=== PATIENT | male | born 1945 | race Caucasian/White ===

== ENCOUNTER 2023-08-04 16:08 | Outpatient (RCR) | payer MEDICARE, OTHER, SELFPAY | END 2023-08-04 23:59 | disposition home or self-care (01) | LOC: CRHB 16:08 | PROVIDERS: ATTENDING PHYSICIAN Internal Medicine Cardiovascular Disease | DX: I25.10 Atherosclerotic heart disease of native coronary artery without angina pectoris (principal); Z95.1 Presence of aortocoronary bypass graft; I25.2 Old myocardial infarction | CPT/HCPCS: G0422; G0423 ==

== ENCOUNTER 2023-09-01 16:02 | Outpatient (RCR) | payer MEDICARE, OTHER, SELFPAY | END 2023-09-01 23:59 | disposition home or self-care (01) | LOC: CRHB 16:02 | PROVIDERS: ATTENDING PHYSICIAN Internal Medicine Cardiovascular Disease | DX: I25.10 Atherosclerotic heart disease of native coronary artery without angina pectoris (principal); Z95.1 Presence of aortocoronary bypass graft; I25.2 Old myocardial infarction | CPT/HCPCS: G0422; G0423 ==

== ENCOUNTER 2023-09-24 16:04 | Outpatient (RCR) | payer MEDICARE, OTHER, SELFPAY | END 2023-09-24 23:59 | disposition home or self-care (01) | LOC: CRHB 16:04 | PROVIDERS: ATTENDING PHYSICIAN Internal Medicine Cardiovascular Disease | DX: I25.2 Old myocardial infarction (principal); Z95.1 Presence of aortocoronary bypass graft | CPT/HCPCS: G0422; G0423 ==

== ENCOUNTER → 2023-09-29 11:23 | Outpatient (REF) | payer MEDICARE, OTHER, SELFPAY | LOC: RAD 11:23 | PROVIDERS: ATTENDING PHYSICIAN Family Medicine | DX: R07.89 Other chest pain (principal) | CPT/HCPCS: 71046; 93005 ==

== ENCOUNTER → 2023-10-14 06:54 | Outpatient (REF) | payer MEDICARE, OTHER, SELFPAY ==
[2023-10-14 07:56] LABS: ALT (SGPT) 15 U/L (0-50); AST (SGOT) 24 U/L (17-59); Alkaline Phosphatase 74 U/L (38-126); Direct Bilirubin 0.2 mg/dl (0.0-0.4); HDL Cholesterol 47 mg/dl; LDL Cholesterol, Calculated 42 mg/dl; Total Bilirubin 0.5 mg/dl (0.2-1.3); Total Cholesterol 107 mg/dl (50-199); Total Protein 6.7 g/dl (6.3-8.2); Triglyceride 90 mg/dl (10-149); Very Low Density Lipoprotein 18 mg/dl (0-30)
== END ==
LOC: REG 06:54
PROVIDERS: ATTENDING PHYSICIAN Internal Medicine Cardiovascular Disease; FAMILY PHYSICIAN Family Medicine
DX: Z95.1 Presence of aortocoronary bypass graft (principal); I10 Essential (primary) hypertension
CPT/HCPCS: 36415; 80061; 80076

== ENCOUNTER → 2024-02-03 15:54 | Outpatient (REF) | payer MEDICARE, OTHER, SELFPAY | LOC: RCS 15:54 | PROVIDERS: ATTENDING PHYSICIAN Internal Medicine Cardiovascular Disease | DX: I49.3 Ventricular premature depolarization (principal) | CPT/HCPCS: 93306 ==

== ENCOUNTER 2024-04-07 04:21 | Observation (INO) | payer MEDICARE, OTHER, SELFPAY ==
[2024-04-07] VITALS (12 sets, daily range): BP systolic 112–202; BP diastolic 50–84; BMI 22.6
[2024-04-07] MEDS: LOW STRENGTH ASPIRIN 324 MG PO (02:13)
[2024-04-07 02:17] LABS: % Basophils 0.9 % (0-2); % Eosinophils 8.9 % (0-6); % Immature Granulocytes 0.4 % (0-0.5); % Lymphocytes 18.3 % (20.5-51.1); % Monocytes 9.4 % (1.7-9.3); % Neutrophils 62.1 % (42.2-75.2); Absolute Basophils 0.1 10^3/uL (0-0.2); Absolute Eosinophils 0.5 10^3/uL (0-0.7); Absolute Monocytes 0.5 10^3/uL (0.1-0.6); Absolute Neutrophils 3.5 10^3/uL (1.4-6.5); Hematocrit 34.4 % (39.0-52.0); Hemoglobin 12.1 g/dL (13.0-18.0); Mean Corp Hgb Conc. 35.2 g/dL (33.0-37.0); Mean Corpuscular Hgb 30.4 pg (27.0-31.0); Mean Corpuscular Volume 86.4 fL (80.0-94.0); Mean Platelet Volume 9.9 fL (7.4-10.4); Nucleated Red Blood Cells % 0 % (-); Platelet Count 173 10^3/uL (130-400); Red Blood Cell Count 3.98 10^6/uL (4.70-6.10); Red Cell Dist. Width 12.6 % (11.5-14.5); White Blood Cell Count 5.6 10^3/uL (4.8-10.8)
[2024-04-07] MEDS: NITROSTAT (SUBLINGUAL) 0.4 MG SL ×2 (02:17→03:03)
[2024-04-07 02:29] LABS: APTT 40.2 Sec (23.4-35.0); INR 1.06; PT 13.8 Sec (11.4-14.6)
[2024-04-07 02:39] LABS: ALT (SGPT) 17 U/L (0-50); AST (SGOT) 25 U/L (17-59); Albumin 4.1 g/dl (3.5-5.0); Alkaline Phosphatase 108 U/L (38-126); Blood Urea Nitrogen 14 mg/dl (9-20); Calcium 9.2 mg/dl (8.4-10.2); Carbon Dioxide 21 mmol/L (22-30); Chloride 105 mmol/L (98-107); Glucose 105 mg/dl (70-99); Potassium 4.5 mmol/L (3.5-5.1); Sodium 138 mmol/L (135-145); Total Bilirubin 0.4 mg/dl (0.2-1.3); Total Protein 6.5 g/dl (6.3-8.2); eGFR > 60.00
[2024-04-07 02:50] LABS: NT-proBNP 585 pg/ml; Troponin I < 0.012 ng/ml
--- NOTE | 2024-04-07 03:07 | ED.GENMED ---
History of Present Illness
General
Chief Complaint: Chest Pain
Time Seen by Provider: 04/07/24 01:50
History of Present Illness
History of Present Illness:
79-year-old male with history of CABG 10 months ago, history of RI with stenting, hypertension presenting to the emergency department for chest pain. Patient reports earlier in this evening, he was having some chest wall pain. He thought that it
may be musculoskeletal. When he went to bed, started to have some soreness in his jaw, and then pain radiate to his shoulders. Notes that he had the same pain 10 months ago when he had his CABG. Patient is on aspirin and Plavix. Denies any
difficulty breathing. Denies fever or cough. Denies any injuries to the chest. Patient follows with Dr. Oakes. Denies additional acute medical
Past History
Past History
ED Past Medical History: Asthma, HTN, Hypercholesterolemia, Psychiatric (Anxiety) and Other (CP, Vertigo, Spinal stenosis); Negative NIDDM
ED Past Surgical History: Cardiac (Stent RCA, CABG), Orthopedic (Carpal tunnel, Left thumb ligament repair, Jaw surgery, Knee surgery) and Other (Sinus surgery, Hernia repair X 3)
Social History
Tobacco: Former smoker
Alcohol: Occasional
Personal:
Living: with family
Phy Exam
Physical Exam
Physical Exam:
General: Well-appearing, no clinical signs of dehydration, nontoxic and in no acute distress
HEENT: protecting airway
Neck: appears supple
CV: Normal heart rate, regular rhythm, no reproducible tenderness to the chest wall
Resp: No accessory muscle use, no increased work of breathing, lungs clear to auscultation bilaterally
Abd: Soft and non-distended, no tenderness to palpation
Extremities: No deformities, no swelling, no erythema
Neuro: alert, no focal neurologic deficit
: deferred
Rectal: deferred
Psych: Normal affect
Skin: Intact
Scores
Heart Score for Chest Pain Patients
STEMI patient?: No
History: Moderately Suspicious
ECG: Nonspecific Repolarization
Age: >/= 65 years
Risk Factors: >/= 3 Risk Factors or History of CAD
Troponin: </= Normal Limit
Heart Score for Chest Pain Patients: 6
Heart Score Risk: 20.3% MACE over next 6 weeks
Course
Orders/Labs/Results
Orders:
Orders
04/07/24 01:39
ECG [Electrocardiogram (*1)] Urgent
Reason for Study: Chest Pain
EKG- Treatment ONCE
04/07/24 01:50
CR Chest - 2 Views Urgent
Comment:
Reason For Exam: chest pain
04/07/24 01:58
Aspirin Chewable [Low Strength Aspirin] 324 mg PO NOW STA
Nitroglycerin Sublingual [Nitrostat (Sublingual)] 0.4 mg SL [id number] PRN
04/07/24 02:07
Complete Blood Count/With Diff Urgent
Comprehensive Metabolic Panel Urgent
NT-proBNP Urgent
PTT Urgent
Prothrombin Time Urgent
Troponin I Q3H
04/07/24 05:00
Troponin I Q3H
Abnormal Lab Results
04/07/24
02:07
RBC 3.98 L 10^6/uL
(4.70-6.10)
Hgb 12.1 L g/dL
(13.0-18.0)
Hct 34.4 L %
(39.0-52.0)
Absolute Lymphs (auto) 1.0 L 10^3/uL
(1.2-3.4)
Lymphocytes % 18.3 L %
(20.5-51.1)
Monocytes % 9.4 H %
(1.7-9.3)
Eosinophils % 8.9 H %
(0-6)
APTT 40.2 H Sec
(23.4-35.0)
Carbon Dioxide 21 L mmol/L
(22-30)
Creatinine 0.6 L mg/dL
(0.7-1.3)
Glucose 105 H mg/dl
(70-99)
04/07/24 02:07
04/07/24 02:07
Vital Signs
Initial and Last Documented VS:
Initial Vital Signs
Temp Pulse Resp BP Pulse Ox
98.2 F 57 16 202/84 100
04/07/24 01:39 04/07/24 01:39 04/07/24 01:39 04/07/24 01:39 04/07/24 01:39
Last Documented Vital Signs
Temp Pulse Resp BP Pulse Ox
98.2 F 66 15 151/63 98
04/07/24 01:39 04/07/24 02:30 04/07/24 02:30 04/07/24 03:03 04/07/24 02:30
MDM/Problems Addressed
MDM/Problems Addressed:
79-year-old male with history of CAD status post CABG, hypertension, hyperlipidemia presenting to the emergency department for chest pain. Vital signs on arrival are significant for hypertension, improved since arrival.
On exam, patient is well-appearing, no acute distress. Benign cardiac and pulmonary exam. EKG obtained on patient's arrival, with a lateral ST depressions, however appears relatively unchanged from prior. Patient story is concerning for ACS. In
addition, notes that he had the same symptoms 10 months ago when he was found to have multivessel occlusions. This reason we will obtain laboratory analysis including troponin. Will start patient on nitro and aspirin and reassess for improvement.
03:15 - Labs are unremarkable with negative troponin. Chest x-ray without acute cardiopulmonary disease. Blood pressure is improved. Patient reports no improvement in his symptoms with nitro. Given that he is still symptomatic with heart score
of 6, feel patient warrants admission for continued cardiac monitoring and cardiac consultation. Patient agreeable to plan.
*EKG
Interpreted by ED Provider?: Yes
EKG Intrepretation Date: 04/07/24
EKG Intrepretation Time: 03:10
Interpretation: normal
Comparison EKG: no changes (07/19/23)
Heart Rate: 51
Rate: bradycardiac
Rhythm: sinus
[place]: normal axis
Interval: normal interval
QRS Pattern: normal QRS
Ischemia: ST depression (laterally)
*Critical Care Note
Total Time (30-74mins, 75-104mins- exclusive of procedures): Not Applicable
ED Attending Note
-
Portions of this chart may have been created with voice recognition software.� Occasional wrong word or��sound alike� substitutions may have occurred due to the inherent limitations of voice recognition software.
Discharge Plan
Departure
Prescriptions:
No Action
atorvastatin 40 mg Tablet
40 mg PO QPM
therapeutic multivitamin Tablet
1 tab PO DAILY
aspirin 81 mg Tablet,Delayed Release (Dr/Ec)
81 mg PO DAILY
alprazolam 0.5 mg Tablet
0.5 mg PO Q6HPRN PRN (Reason: ANXIETY)
Patient Comments:
05/25/23 FILLED ON 05/06/23 #30
amiodarone [Pacerone] 200 mg Tablet
200 mg PO DAILY Qty: 60 0RF
clopidogrel 75 mg Tablet
75 mg PO DAILY Qty: 30 0RF
acetaminophen 325 mg Tablet
650 mg PO Q6HPRN PRN (Reason: mild pain,headache) Qty: 0 0RF
metoprolol succinate 25 mg Tablet Extended Release 24 Hr
25 mg PO DAILY Qty: 90 1RF
furosemide 20 mg tablet
20 mg PO DAILY Qty: 3 0RF
pantoprazole 40 mg Tablet,Delayed Release (Dr/Ec)
40 mg PO DAILY Qty: 30 0RF
Interventions
Interventions:
*Risk Screen - Suicide Last Done: 04/07/24 01:39
*General Assessment Last Done: 04/07/24 02:00
*Neglect/Abuse Screening Last Done: 04/07/24 01:39
ED- Fall Risk Assessment Last Done: 04/07/24 02:00
*ED COVID-19 Vaccine History Last Done: 04/07/24 02:00
ED- Cardiac Assessment Last Done: 04/07/24 02:00
Discharge Date and Time
Print Language: [id number]
--- NOTE | 2024-04-07 04:16 | HPS.HSE ---
Family Physician
-
Family Physician: Galo Cadena
Chief Complaint
-
Chest pain
History of Present Illness
Patient is a 79y M with PMH significant for ASCVD who presents to ED complaining of chest pain. Patient states that he was feeling very well until this evening around 8PM when he developed substernal chest pain. Patient initially thought the
discomfort was musculoskeletal in origin. He notes that he has been doing exercises to strengthen his core - and did more than usual over the past 2 days. He was able to get to sleep this evening, but woke with neck pain / upper back pain, headache
and pain radiating into the jaw. He presented to the ED for further evaluation and treatment.
Patient denies any dyspnea, diaphoresis, nausea, etc.
He states that his current symptoms seem more 'midline' than his prior chest pain episodes (has had CABG and stent in the past).
In the ED, patient states that his pain is improving - currently a /.
Medical History
Past Medical History
Past Medical History: Reports Other
Additional Past Medical History:
ASCVD (CAD and Carotid Stenosis)
Hypertension
Generalized Anxiety
Chronic Sinus Disease
Past Surgical History: Reports Other
Additional Past Surgical History:
CABG (05/2023)
PTCA with Stent
Left CEA
Jaw Surgery
Hernia Repair
Carpal Tunnel
Sinus Surgery
Social History
Tobacco: Former Smoker (Quit smoking in 1980s. Approx 20 pack years total use.)
Alcohol: Occasional
Drug: None
Personal:
Living: With Family
Family History
Family History: Other (Mother / Sister: Heart Disease)
Allergies / Home Medications
Allergies reflects when Allergies were last updated in [facility].
Home Medications with original date entered in [facility]
Allergy/Medication List:
Allergies
Allergy/AdvReac Type Severity Reaction Status Date / Time
levofloxacin [From Levaquin] Allergy Swelling Verified 04/07/24 01:39
naproxen Allergy anaphylaxis Verified 04/07/24 01:39
Home Medications
alprazolam 0.5 mg tablet 0.5 mg PO Q6HPRN PRN ANXIETY 05/25/23
atorvastatin 40 mg tablet 80 mg PO QPM High Cholesterol 05/25/23
acetaminophen 325 mg tablet 650 mg (2 x 325 mg) PO Q6HPRN PRN mild pain,headache #0 tabs 06/01/23
clopidogrel 75 mg tablet 75 mg PO DAILY Blood clot prevention/tx #30 tabs 06/01/23
gabapentin 300 mg tablet 300 mg PO BID 04/07/24
losartan 25 mg tablet 25 mg PO DAILY 04/07/24
metoprolol succinate 25 mg tablet,extended release 24 hr 12.5 mg PO HS 04/07/24
Review of Systems
-
History Source: Patient
A 12 point ROS was completed and negative except as noted: Yes
Constitutional: Denies Fever or Chills
EENT: Denies Sore Throat
Respiratory: Denies Cough or Trouble Breathing
Cardiac: Reports Chest Pain; Denies Diaphoresis, Palpitations or Syncope
Abdomen/GI: Denies Abdominal Pain, Nausea, Vomiting or Diarrhea
: Denies Dysuria, Frequency or Flank Pain
Musculoskeletal: Denies Joint Pain or Edema
Neurological: Reports Headache; Denies Dizzy
Psych: Reports Anxiety; Denies Depression
Physical Exam
Vital Signs
Vital Signs
Temp Pulse Resp BP Pulse Ox
98.2 F 51 13 126/57 96
04/07/24 01:39 04/07/24 04:00 04/07/24 04:00 04/07/24 04:00 04/07/24 04:00
Physical Exam
General: Other (79y M in no acute distress.)
HEENT: Moist mucous membranes and PERRLA
Respiratory: Clear; No Wheezes, Rales or Rhonchi
Cardiac: S1/S2 and Regular Rhythm; No Murmur
GI: Soft, Non Tender, Non Distended and Normal Bowel Sounds
Musculoskeletal: No Clubbing, No Cyanosis, No Edema and Other (Tenderness L sternum area. No overlying skin changes / fluctuance / etc.)
Neuro: AO x 3
Laboratory Results
-
04/07/24 02:07
04/07/24 02:07
Laboratory Results
PT 13.8 Sec (11.4-14.6) 04/07/24 02:07
INR 1.06 04/07/24 02:07
APTT 40.2 Sec (23.4-35.0) H 04/07/24 02:07
Total Bilirubin 0.4 mg/dl (0.2-1.3) 04/07/24 02:07
AST 25 U/L (17-59) 04/07/24 02:07
ALT 17 U/L (0-50) 04/07/24 02:07
Alkaline Phosphatase 108 U/L (38-126) 04/07/24 02:07
Troponin I < 0.012 ng/ml 04/07/24 02:07
Impression/Plan
-
A/P: Patient is a 79y M with PMH significant for ASCVD who presents to ED complaining of chest pain this evening.
Chest Pain
ASCVD
- Observe overnight for further evaluation and treatment.
- Pain improving since arrival - continue to monitor for any changes.
- EKG with non-specific ST-T wave changes in the lateral leads - has had similar changes on prior tracings.
- Initial troponin is undetectable.
- Continue outpatient Plavix, statin, beta-jessika, etc.
- Add back ASA 81mg daily for now.
- Serial EKGs, troponin, etc.
- Cardiology evaluation for additional recommendations.
- Given recent increase in exercise, focal tenderness, etc - muscular origin does seem likely.
Benign Hypertension
- Stable. Continue usual medications with holding parameters.
Generalized Anxiety
- Stable. Continue gabapentin and PRN alprazolam.
DVT Prophylaxis: Lovenox
Code Status: Full
[2024-04-07 05:43] LABS: Troponin I < 0.012 ng/ml
[2024-04-07] MEDS: COZAAR 25 MG PO (07:58)
[2024-04-07] MEDS: NEURONTIN 300 MG PO (07:58)
[2024-04-07] MEDS: LOW STRENGTH ASPIRIN 81 MG PO (07:59)
[2024-04-07] MEDS: TYLENOL 650 MG PO (07:59)
[2024-04-07] MEDS: PLAVIX 75 MG PO (07:59)
--- NOTE | 2024-04-07 08:07 | PTCARENOTE ---
pt presents from ED via stretcher. pt ambulated to the room. Vss, room air. c/o headache. pt with chest discomfort received 2 dose of nitro in ER. pt is oriented to the room. call tay within the reach. Tylenol given as per ordered. plan of care
ongoing.
[2024-04-07 09:13] LABS: Troponin I < 0.012 ng/ml
--- NOTE | 2024-04-07 09:48 | CON.CAR ---
Addendum entered and electronically signed by Delfino Rodriguez MD 04/07/24 14:50:
I saw and examined the patient.
The Security And Compliance Analyst's note was reviewed and I agree with the note.
Comment: Briefly, 79-year-old man past medical history of coronary artery disease with prior CABG in 2022 who presents with chest discomfort and cardiology is asked to comment
Troponin is undetectable here
Twelve-lead ECG is nonischemic appearing
Discussed with patient, by description his pain sounds more likely to be musculoskeletal
We will arrange for outpatient stress test to assess for ischemia as a cause of his symptoms
For now continue medical management of CAD
Stable cardiac status
Outpatient follow-up arranged
Original Note:
Consultation
Consultation Request
Date/Time Consultation Requested: 04/07/2024
Date/Time Consultation Performed: 04/07/2024 at 0900
Requesting Provider: Dr. Knight
Performing Provider: Romelia Pratt PA-C for Dr. Rodriguez
Reason for Consultation: Chest Pain
Medical History
-
History of Present Illness:
HPI: Heriberto is a 79 year old male with PMH of CAD s/p CABG x3, hypertension, hyperlipidemia, carotid artery stenosis s/p CEA, and asthma who presents to [facility] for evaluation of chest pain. He has spinal stenosis and was doing exercises/stretches
with his arms/chest with more intensity over the past few days. Yesterday night, he then started to notice some central chest soreness/discomfort. This worsened with turning his head and with palpation over the area. He also noted a headache and
sinus pressure. He notes he does nasal lavage frequently and mucus has been thicker and darker over the past few days. Given chest discomfort, he became anxious and checked his blood pressure at home and states it was elevated, in the 150s
systolic. Because of this with his history, he came to ER for evaluation. In ER, EKG is stable, sinus rhythm with PACs. Chest x-ray was without abnormality. Troponins have been negative x 3. He is highly active at baseline, walking 4 miles
regularly and white water rafting without any exertional symptoms. Pain feels different from his prior angina. He feels well this morning.
PMH:
CAD
s/p RCA 3.5 mm Xience RAJ 2010
s/p CABG x 3 (BESSIE to LAD, SVG-OM, SVG-PDA) 05/26/2023
Hypertension
Hyperlipidemia
Carotid artery stenosis status post CEA 2011
Asthma
Spinal stenosis
Past Medical History
Past Medical History: Other (See HPI)
Past Surgical History: Cardiac (RCA RAJ 2010, CABG x 3 05/26/2023) and Other (Hernia repair, Carotid endarterectomy 2011, Carpal tunnel repair)
Social History
Tobacco: Former Smoker
Alcohol: Occasional
Drug: None
Personal:
Living: With Family
Family History
Family History: CAD (mother) and Hypertension (father)
Allergies / Home Medications
Allergy/AdvReac Type Severity Reaction Status Date / Time
levofloxacin [From Levaquin] Allergy Swelling Verified 04/07/24 01:39
naproxen Allergy anaphylaxis Verified 04/07/24 01:39
�Medication �Instructions �Recorded �Confirmed �Type
alprazolam 0.5 mg tablet 0.5 mg PO Q6HPRN PRN ANXIETY 05/25/23 04/07/24 History
atorvastatin 40 mg tablet 80 mg PO QPM High Cholesterol 05/25/23 04/07/24 History
acetaminophen 325 mg tablet 650 mg (2 x 325 mg) PO Q6HPRN PRN 06/01/23 04/07/24 Rx
mild pain,headache #0 tabs
clopidogrel 75 mg tablet 75 mg PO DAILY Blood clot 06/01/23 04/07/24 Rx
prevention/tx #30 tabs
gabapentin 300 mg tablet 300 mg PO BID 04/07/24 04/07/24 History
losartan 25 mg tablet 25 mg PO DAILY 04/07/24 04/07/24 History
metoprolol succinate 25 mg 12.5 mg PO HS 04/07/24 04/07/24 History
tablet,extended release 24 hr
Review of Systems
-
History Source: Patient
All other systems: Negative unless noted
Physical Exam
Vital Signs
Temp Pulse Resp BP Pulse Ox
97.6 F 48 16 121/51 100
04/07/24 07:30 04/07/24 07:58 04/07/24 07:30 04/07/24 07:58 04/07/24 07:30
Lab Results
04/07/24 02:07
04/07/24 02:07
Troponin I < 0.012 ng/ml 04/07/24 08:18
Zwy-H-Shffloqwvpd Pept 585 pg/ml 04/07/24 02:07
Physical Exam
General: Well Developed, Well Nourished and No Apparent Distress
HEENT: Normocephalic, Anicteric and Moist Mucous Membranes
Respiratory: Clear and Non Labored Respirations
Cardiac: S1/S2 and Regular Rhythm
Musculoskeletal: No Clubbing, No Cyanosis and No Edema
Skin: Warm
Neuro: AO x 3 and Nonfocal/Grossly Intact
Psych: Calm
Impression / Plan
-
PCP: Dr. Cadena
Cardiology: Dr. SALOMÓN Oakes
Impression:
Presented with chest soreness/discomfort
CAD
s/p RCA 3.5 mm Xience RAJ 2010
s/p CABG x 3 (BESSIE to LAD, SVG-OM, SVG-PDA) 05/26/2023
Hypertension
Hyperlipidemia
Carotid artery stenosis status post CEA 2011
Asthma
Spinal stenosis
Echo 10/07/2022: EF 67%, stage I DD, mild MR, mild AI
Echo 02/03/2024: EF 64%, mild concentric LVH, trace MR, mild AI
Plan:
-Presented with chest discomfort/soreness after doing more intense exercises the past few days. Pain is reproducible with palpation. Feels different from prior angina.
-Troponins negative x 3. EKG stable, sinus rhythm with PACs.
-Feels well currently without any current complaints.
-Recent echo 02/03/2024 with preserved EF, stable from prior.
-He has history of CAD with CABG x 3 05/26/2023. Continues on Plavix 75 mg daily. Aspirin 81 mg daily recently discontinued over the past few months due to hematuria.
-Hematuria has resolved. Agree with resuming aspirin for now. Continue aspirin and Plavix. Will arrange for outpatient stress testing to further evaluate
-Continue high intensity statin.
-Blood pressure stable. Continue losartan and Toprol.
-Follow-up office visit and stress testing have been arranged
-Okay for discharge from cardiac standpoint
HPI: Heriberto is a 79 year old male with PMH of CAD s/p CABG x3, hypertension, hyperlipidemia, carotid artery stenosis s/p CEA, and asthma who presents to [facility] for evaluation of chest pain. He has spinal stenosis and was doing exercises/stretches
with his arms/chest with more intensity over the past few days. Yesterday night, he then started to notice some central chest soreness/discomfort. This worsened with turning his head and with palpation over the area. He also noted a headache and
sinus pressure. He notes he does nasal lavage frequently and mucus has been thicker and darker over the past few days. Given chest discomfort, he became anxious and checked his blood pressure at home and states it was elevated, in the 150s
systolic. Because of this with his history, he came to ER for evaluation. In ER, EKG is stable, sinus rhythm with PACs. Chest x-ray was without abnormality. Troponins have been negative x 3. He is highly active at baseline, walking 4 miles
regularly and white water rafting without any exertional symptoms. Pain feels different from his prior angina. He feels well this morning.
Data Reviewed
-
EKG: Tracing Personally Visualized and interpreted
Radiology: Report Reviewed by me
Labs: Labs Reviewed by me
Old Records: Reviewed
--- NOTE | 2024-04-07 10:07 | W.PN.HOSP.TC ---
Addendum entered and electronically signed by Tyrese Huff DO 04/07/24 12:41:
Cardiology recommends discharge and plan for outpatient stress test.
Original Note:
Today's Communication/Plan
-
Await cardiology input
Assessment / Plan
Assessment / Plan
Gen-AAOx3, NAD
HEENT-NC, AT, anicteric, clear oral mm
Neck-supple
CV-reg, no M, +S1/S2
Lungs-clear B/L
Abd-soft, NT, ND
Ext-no edema
Musculoskeletal-no cyanosis, clubbing
Skin-warm and dry
Neuro-grossly non-focal
Psych-calm, cooperative
Substernal chest discomfort -with associated sinus pressure and neck pain. Doubt ACS but he does have risk factors and underlying CAD. Troponins negative so far. Awaiting cardiology input. Anticipate stress test at some point, either inpatient
or outpatient.
CAD/CABG -had three-vessel CABG 05/26/2023. Multivessel CAD and non-STEMI. Prior PCI/RAJ to RCA. Was on dual antiplatelet therapy until February of this year when aspirin was discontinued due to transient hematuria. Continue Plavix. Aspirin added
back this hospitalization, will discuss with cardiology whether to continue.
Continue atorvastatin, Toprol-XL.
Essential hypertension -stable.
Generalized anxiety disorder
Full code
Anticipated Discharge: Within 24 hours
Subjective/Interval History
-
Date of Service: April 07, 2024
Patient seen and examined. No complaints.
Objective Data
-
Labs:
Laboratory Results
04/07/24
02:07
WBC 5.6
Hgb 12.1 L
Hct 34.4 L
Plt Count 173
PT 13.8
INR 1.06
APTT 40.2 H
Sodium 138
Potassium 4.5
Chloride 105
Carbon Dioxide 21 L
BUN 14
Creatinine 0.6 L
Glucose 105 H
Calcium 9.2
Total Bilirubin 0.4
AST 25
ALT 17
Alkaline Phosphatase 108
Vital Signs:
Vital Signs
Temp Pulse Resp BP Pulse Ox
97.6 F 48 16 121/51 100
04/07/24 07:30 04/07/24 07:58 04/07/24 07:30 04/07/24 07:58 04/07/24 07:30
Review of Systems
-
History Source: Patient
All other systems: Reviewed and negative
--- NOTE | 2024-04-07 12:47 | W.DS.TRANS ---
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
-
Discharge Instructions:
Discharge Diagnosis/Procedures Chest pain
Diet Low Cholesterol,Low Fat
Activity As tolerated
Driving Restrictions As prior to admission
Bathing Restrictions None
Instructions:
Stand-Alone Forms:
Changes to Home Medications: No
Discharge Medications:
DC Medications w/original date entered in [facility]
alprazolam 0.5 mg tablet 0.5 mg PO Q6HPRN PRN ANXIETY 05/25/23
atorvastatin 40 mg tablet 80 mg PO QPM High Cholesterol 05/25/23
acetaminophen 325 mg tablet 650 mg (2 x 325 mg) PO Q6HPRN PRN mild pain,headache #0 tabs 06/01/23
clopidogrel 75 mg tablet 75 mg PO DAILY Blood clot prevention/tx #30 tabs 06/01/23
aspirin 81 mg chewable tablet 81 mg PO DAILY #60 tabs 04/07/24
gabapentin 300 mg tablet 300 mg PO BID 04/07/24
losartan 25 mg tablet 25 mg PO DAILY 04/07/24
metoprolol succinate 25 mg tablet,extended release 24 hr 12.5 mg PO HS 04/07/24
nitroglycerin 0.4 mg sublingual tablet 0.4 mg sublingual [id number] PRN ANGINA #30 tabs 04/07/24
Home Medication Changes
Pending Results: No
--- NOTE | 2024-04-07 16:30 | CM ---
Alert awake oriented patient who lives with his Tk who lives in a 3 story home with 5 step to enter and 16 steps to bed and bathroom. He is independent in driving and in all activities of daily living.He was offered VN he declined
[email or web address].[email or web address] explained to pt . SHANNAN signed on chart.
DH VN hx / No SNF history
Pharmacy [facility]
PCP DR Cadena
PLAN Home Declined VN
== END 2024-04-07 13:46 | disposition home or self-care (01) ==
LOC: 4 EAST ACU 04:21
PROVIDERS: ADMITTING PHYSICIAN Hospitalist; ATTENDING PHYSICIAN Hospitalist; EMERGENCY PHYSICIAN Student in an Organized Health Care Education/Training Program; FAMILY PHYSICIAN Family Medicine; OTHER PHYSICIAN Internal Medicine Cardiovascular Disease
DX: R07.9 Chest pain, unspecified (principal); J98.4 Other disorders of lung; I49.1 Atrial premature depolarization; R00.1 Bradycardia, unspecified; M54.2 Cervicalgia; M54.6 Pain in thoracic spine; R07.2 Precordial pain; I10 Essential (primary) hypertension; F41.1 Generalized anxiety disorder; J45.909 Unspecified asthma, uncomplicated; E78.00 Pure hypercholesterolemia, unspecified; I25.10 Atherosclerotic heart disease of native coronary artery without angina pectoris; I25.2 Old myocardial infarction; Z79.82 Long term (current) use of aspirin; Z79.02 Long term (current) use of antithrombotics/antiplatelets; Z87.891 Personal history of nicotine dependence; Z98.890 Other specified postprocedural states; Z95.5 Presence of coronary angioplasty implant and graft; Z95.1 Presence of aortocoronary bypass graft; Z82.49 Family history of ischemic heart disease and other diseases of the circulatory system; Z88.1 Allergy status to other antibiotic agents; Z88.6 Allergy status to analgesic agent
CPT/HCPCS: 71046; 80053; 83880; 84484; 85025; 85610; 85730; 93005; 99285; G0378

== ENCOUNTER → 2024-04-20 07:32 | Outpatient (REF) | payer MEDICARE, OTHER, SELFPAY | LOC: DHCBC/DCA 07:32 | PROVIDERS: ATTENDING PHYSICIAN Internal Medicine Cardiovascular Disease; FAMILY PHYSICIAN Family Medicine | DX: R07.89 Other chest pain (principal); I25.10 Atherosclerotic heart disease of native coronary artery without angina pectoris; Z95.1 Presence of aortocoronary bypass graft | CPT/HCPCS: 78452; 93017; A9500 ==

== ENCOUNTER → 2024-10-13 07:59 | Outpatient (REF) | payer MEDICARE, OTHER, SELFPAY ==
[2024-10-13 09:14] LABS: AST (SGOT) 23 U/L (17-59); Albumin 3.7 g/dl (3.5-5.0); Alkaline Phosphatase 73 U/L (38-126); Blood Urea Nitrogen 14 mg/dl (9-20); Calcium 9.1 mg/dl (8.4-10.2); Carbon Dioxide 30 mmol/L (22-30); Chloride 107 mmol/L (98-107); Glucose 91 mg/dl (70-99); HDL Cholesterol 47 mg/dl; LDL Cholesterol, Calculated 38 mg/dl; Total Bilirubin 0.5 mg/dl (0.2-1.3); Total Cholesterol 99 mg/dl (50-199); Total Protein 6.2 g/dl (6.3-8.2); Triglyceride 71 mg/dl (10-149); Very Low Density Lipoprotein 14 mg/dl (0-30); eGFR > 60.00
[2024-10-13 09:24] LABS: ALT (SGPT) 15 U/L (0-50); Sodium 141 mmol/L (135-145)
== END ==
LOC: REG 07:59
PROVIDERS: ATTENDING PHYSICIAN Internal Medicine Cardiovascular Disease; FAMILY PHYSICIAN Student in an Organized Health Care Education/Training Program
DX: I25.10 Atherosclerotic heart disease of native coronary artery without angina pectoris (principal); I65.29 Occlusion and stenosis of unspecified carotid artery; I10 Essential (primary) hypertension; E78.00 Pure hypercholesterolemia, unspecified
CPT/HCPCS: 36415; 80053; 80061

== ENCOUNTER → 2025-01-03 07:17 | Outpatient (REF) | payer MEDICARE, OTHER, SELFPAY ==
[2025-01-03 08:04] LABS: Hematocrit 36.8 % (39.0-52.0); Hemoglobin 12.2 g/dL (13.0-18.0); Mean Corp Hgb Conc. 33.2 g/dL (33.0-37.0); Mean Corpuscular Volume 89.8 fL (80.0-94.0); Nucleated Red Blood Cells % 0 % (-); Platelet Count 193 10^3/uL (130-400); Red Cell Dist. Width 13.9 % (11.5-14.5)
[2025-01-03 09:13] LABS: PSA, Total - Screen 0.52 ng/ml (0.0-4.0)
== END ==
LOC: REG 07:17
PROVIDERS: ATTENDING PHYSICIAN Student in an Organized Health Care Education/Training Program
DX: E86.1 Hypovolemia (principal); Z12.5 Encounter for screening for malignant neoplasm of prostate; Z76.89 Persons encountering health services in other specified circumstances
CPT/HCPCS: 36415; 85025; G0103

== ENCOUNTER → 2025-01-09 11:36 | Outpatient (REF) | payer MEDICARE, OTHER, SELFPAY ==
[2025-01-09 16:39] LABS: Urine Squamous Cell 0-2 /LPF (Few)
[2025-01-09 16:40] LABS: Urine Red Blood Cell 0-2 /HPF (0-2); Urine White Cell >100 /HPF (0-5)
== END ==
LOC: CLAB 11:36
PROVIDERS: ATTENDING PHYSICIAN Student in an Organized Health Care Education/Training Program
DX: R31.9 Hematuria, unspecified (principal)
CPT/HCPCS: 81015